=== PATIENT | female | born 1985 | race Caucasian/White ===

== ENCOUNTER 2016-09-22 18:29 | Emergency (ER) | payer SELFPAY ==
[~2016-09-22 18:29] MED LIST: CELEXA PO; CHANTIX PO; KETOPROFEN PO; LAMICTAL PO; LIDOCAINE HC20 MG/M1 MM; PEN-VEE K PO; PRENATAL VITAMI1 TA3 PO; REGLAN10 MG PO; RISPERIDONE PO; TRAZODONE PO; ULTRAM PO
== END 2016-09-22 20:13 | disposition home or self-care (01) ==
LOC: SED 18:29
DX: S13.4XXA Sprain of ligaments of cervical spine, initial encounter (principal); Z86.59 Personal history of other mental and behavioral disorders; V43.52XA Car driver injured in collision with other type car in traffic accident, initial encounter; Y93.89 Activity, other specified; Y92.488 Other paved roadways as the place of occurrence of the external cause
CPT/HCPCS: 99283